=== PATIENT | female | born 1940 | race Caucasian/White ===

== ENCOUNTER 2017-08-21 06:03 | Inpatient (IN) | payer OTHER, BC ==
[2017-08-14 13:01] VITALS: BMI 33.2
[2017-08-21] MEDS ORDERED: CELECOXIB 200 MG CAPSULE PO ONE (06:24)
[2017-08-21] MEDS ORDERED: TRANEXAMIC ACID 1000 MG/10 ML VIAL IVPUSH ONE (06:24)
[2017-08-21] MEDS ORDERED: CEFAZOLIN 1 GM/D5W 1 GM/50 ML BAG IVPB ONE (06:24)
[2017-08-21] MEDS ORDERED: GABAPENTIN 300 MG CAPSULE (FP) PO ONE (06:24)
[2017-08-21] MEDS ORDERED: GABAPENTIN 300 MG CAPSULE (FP) ONE (06:40)
[2017-08-21] MEDS ORDERED: CELECOXIB 200 MG CAPSULE ONE (06:40)
[2017-08-21] MEDS ORDERED: BUPIVACAINE LIPOSOME/PF (EXPAREL) 266 MG/20 ML VIAL ONE (06:53)
[2017-08-21] MEDS ORDERED: MIDAZOLAM HCL 2 MG/2 ML SINGLE DOSE VIAL ONE (06:53)
[2017-08-21] MEDS ORDERED: BUPIVACAINE HCL/PF (5 MG/ML) 30 ML VIAL IJ ONE (06:53)
[2017-08-21] MEDS ORDERED: SODIUM CHLORIDE 0.9% P/F 10 ML VIAL IJ ONE (06:54)
[2017-08-21] MEDS ORDERED: BUPIVACAINE HCL/PF 2.5 MG/ML - 30 ML VIAL IJ ONE (06:54)
[2017-08-21] MEDS ORDERED: PROPOFOL 20 ML ONE (07:13)
[2017-08-21] MEDS ORDERED: SUCCINYLCHOLINE CHLORIDE 200 MG/10 ML VIAL ONE (07:13)
[2017-08-21] MEDS ORDERED: ceFAZolin SODIUM 1 GM VIAL ONE ×2 (07:14→07:18)
[2017-08-21] MEDS ORDERED: LIDOCAINE HCL/PF 2% SDV 5ML VIAL ONE (07:14)
[2017-08-21] MEDS ORDERED: VANCOMYCIN 1,000 MG VIAL (RESTRICTED TO ID ONLY) ONE (07:18)
--- NOTE | 2017-08-21 07:50 | HP ---
[facility] - Chief Complaint Chief Complaint: right knee pain - Past Medical History Allergies/Adverse Reactions: Allergies Allergy/AdvReac Type Severity Reaction Status Date / Time No Known Drug Allergies Allergy Verified 08/14/17 12:48 - Current Medications Current Medications: Home Medications Medication Instructions Recorded Aspirin [Ecotrin] 81 mg PO DAILY 08/14/17 Triamterene/Hydrochlorothiazid 1 each PO DAILY 08/14/17 [Dyazide 37.5-25 Capsule] Satellite Physical Exam - Physical Examination Vital Signs: Vital Signs Period Temp Pulse Resp BP Sys/Hoover Pulse Ox Last 24 Hr 98.2 F 80 18 147/90 General Appearance: Well Nourished, Well Developed, Alert & Oriented x3 ENT: Clear Lung: Normal air movement Heart: Regular rate & rhythm Extremities: Other (right knee- + swelling, + ttp, decr rom, nvi xrays show grade 4 tricompartmental djd) Neurological: Intact, Alert, Oriented Satellite Impression/Plan - Impression/Plan Impression: right knee djd Operative Procedure: right alexandra tkr Date to be Performed: 08/21/17
[2017-08-21] MEDS ORDERED: TRANEXAMIC ACID 1000 MG/10 ML VIAL ONE (08:40)
[2017-08-21] MEDS ORDERED: DEXAMETHASONE SOD PHOSPHATE 4 MG/1 ML VIAL ONE (08:49)
[2017-08-21] MEDS ORDERED: ONDANSETRON 4 MG/2 ML VIAL ONE (08:49)
[2017-08-21] MEDS ORDERED: VANCOMYCIN 1,000 MG VIAL (RESTRICTED TO ID ONLY) IVPB ONE (09:25)
[2017-08-21] MEDS ORDERED: MAGNESIUM HYDROX 2400MG/30ML ORAL SUSPENSION 30 ML CUP PO PRN (09:50)
[2017-08-21] MEDS ORDERED: ONDANSETRON 4 MG/2 ML VIAL IVPUSH PRN ×2 (09:50→10:35)
[2017-08-21] MEDS ORDERED: MAG HYDROX/AL HYDROX/SIMETH 30 ML UNIT-DOSE CUP PO PRN (09:50)
--- NOTE | 2017-08-21 09:52 | OP ---
Operative Note - Note: Operative Date: 08/21/17 (ric) Pre-Operative Diagnosis: right knee djd Operation: right alexandra tkr Post-Operative Diagnosis: Same as Pre-op Surgeon: Jose Alberto Barrera Blow Pit Operator: Ayo Molina Anesthesiologist/LINE ERECTOR APPRENTICE: Ting Hrebert Anesthesia: General, Spinal, Local Specimens Removed: bone fragments Estimated Blood Loss (mls): 100 Operative Report Dictated: Yes
[2017-08-21] MEDS ORDERED: LACTATED RINGERS SOLUTION 1,000 ML IV SCH (10:00)
[2017-08-21] MEDS ORDERED: oxyCODONE HCL 5 MG TABLET PO PRN (10:35)
[2017-08-21] MEDS ORDERED: PROMETHAZINE HCL 25 MG/1 ML VIAL IVPUSH PRN (10:35)
[2017-08-21] MEDS ORDERED: ACETAMINOPHEN 325 MG TABLET (FP) PO SCH (10:45)
--- NOTE | 2017-08-21 14:03 | SPEC ---
DATE OF OPERATION: 08/21/2017 PREOPERATIVE DIAGNOSIS: Degenerative joint disease, right knee. POSTOPERATIVE DIAGNOSIS: Degenerative joint disease, right knee. PROCEDURE: Right total knee replacement with robotic-assisted navigation (Makoplasty). SURGICAL ATTENDING: Jose Alberto Barrera M.D. LABORER WRECKING AND SALVAGING: Luis Mchugh ANESTHESIA: Regional and spinal. CLOSURE: A cemented Triathlon total knee system with a 4 femur, 5 tibia, 11 polyethylene, a 29 patella, number 1 Vicryl fascia, 0 and 2-0 subcutaneous, 3-0 Monocryl subcuticular with skin glue for skin, 4-0 undyed Vicryl for pin sites. ESTIMATED BLOOD LOSS: Less than 100 mL. COMPLICATIONS: None. CONDITION: To recovery room in stable condition. DESCRIPTION OF OPERATIVE PROCEDURE: Patient was taken to the operating room on August 21, 2017. Regional and spinal anesthesia was administered by the anesthesiologist. IV Kefzol and TXA were administered by the anesthesiologist. Well-padded pneumatic tourniquet was placed on the proximal thigh. The right lower extremity was prepped and draped in the usual sterile fashion. The leg was exsanguinated with an Esmarch bandage, and tourniquet was inflated to 275 mmHg. A 12 to 15-cm longitudinal midline incision was incised while centered over the patella. The dissection was carried down to the level of the extensor mechanism with sufficient flaps made to adequately perform the procedure. A medial parapatellar arthrotomy was then performed. We made a cuff of tissue on the patella for later closure. The patella was inverted, the knee was flexed up. The fat pad was excised. The subperiosteal dissection was on the anteromedial proximal tibia around towards the direction of the MCL. The ACL and the PCL were transected and debrided. The meniscal remnants of the medial and lateral meniscus were debrided and removed. This allowed the knee to be able to "be brought forward." The checkpoints were malleted into the tibia and into the femur. Two threaded pins were drilled anteroposteriorly proximal to the knee through the previous incision, through the anterior cortex, then just engaging the posterior cortex. To these pins was assembled the femoral navigation array. One handbreadth below the tibial tubercle, 2 stab incisions were used to drill 2 threaded pins in parallel fashion into the tibia, again through the anterior cortex and just engaging the posterior cortex. To these pins was fastened the tibial arrays. The knee was then registered with the navigation device with center of rotation of the hip, medial and lateral malleoli, both checkpoints, and multiple points on both the femur and the tibia to ensure excellent registration. The navigation device was directed off the "top of the bubbles" on both the femur and the tibia. The navigation passed within less than 0.5 mm to plan. The knee was then thoroughly inspected to remove all osteophytes both medially, laterally, and on the femur and the tibia, and whatever osteophytes were available for dissection. The knee was then taken to extension and to flexion, and stressed in both varus and valgus to assess flexion gaps. The virtual position of the components on the navigation device were then manipulated to optimize the position and to ensure equal gaps in both flexion and extension, and both medially and laterally. The robot was then brought into the field and was registered. The cuts were then made both on the femur and on the tibia as to plan. All osteophytes posteriorly were then removed as well. The gaps were then measured again in flexion and extension to be equal in both flexion and extension and medial and laterally. The femoral notch was then made, as we were doing a posterior stabilizing component, with the appropriate sized box. Trial reduction of the femur achieved excellent hscs-pt-bnex fit. A tibial baseplate of appropriate polyethylene thickness was "floated in the knee." It was ensured to be in the excellent position by navigation devices and was pinned in place. The knee was taken through a range of motion, and found to have excellent stability throughout flexion and extension. The patella was calibrated for thickness and osteotomized down to the appropriate level. The appropriate lollipop was used to drill the lug holes in the patella and the trial button was applied. The knee was taken through a range of motion and found to have excellent tracking of the patella, and patella from full extension to full flexion. Trial components were removed, the keel was punched and drilled, and a sclerotic bone on the tibia was drilled to help with cement interdigitation. The knee was thoroughly irrigated with the pulse antibiotic school community relations coordinator. The real components were then cemented in using monitored arrangement cement techniques with antibiotic cement, and pressurization and extension. After the cement was hardened, the knee was thoroughly inspected to remove any extra cement. The real polyethylene component was then clipped into place. Range of motion, stability, and tracking were as described earlier. The checkpoints and the pins were removed. The knee was thoroughly irrigated with antibiotic irrigation. Vancomycin powder was placed into the knee for antibiotic prophylaxis. The medial parapatellar arthrotomy was then closed using number 1 Vicryl interrupted suture. After closure of the deep layer, the knee was taken through a range of motion, and found to have excellent stability of the patella with no dislocation and no undue tension on the repair. The subcutaneous was pulse antibiotic irrigated, and was then closed with 2-0 Vicryl, 3-0 Monocryl subcuticular with the skin glue for the skin. The distal tibial pin site was irrigated thoroughly as well and then closed with 4-0 undyed Vicryl. A sterile Aquacel dressing was applied, followed by a Nicole dressing. Tourniquet was deflated. Total tourniquet time was approximately 75 minutes. No complications. Patient was awakened from anesthesia and transferred to recovery room in stable condition. Postoperative x-rays revealed excellent position of the components. David [id number]
[2017-08-21] MEDS: oxyCODONE HCL 5 MG TABLET PO PRN ×2 (15:13→18:50)
[2017-08-21] MEDS: CEFAZOLIN 1 GM/D5W 1 GM/50 ML BAG IVPB SCH (15:28)
[2017-08-21] MEDS: oxyCODONE HCL 10 MG SUSTAINED ACTING TABLET PO SCH (21:20)
[2017-08-21] MEDS: SENNOSIDES/DOCUSATE COMBO (SENNA PLUS) TABLET (UD) PO SCH (21:20)
[2017-08-22] MEDS: CEFAZOLIN 1 GM/D5W 1 GM/50 ML BAG IVPB SCH
[2017-08-22] MEDS: ACETAMINOPHEN 325 MG TABLET (FP) PO SCH ×4 (05:00→18:29)
[2017-08-22] MEDS: oxyCODONE HCL 5 MG TABLET PO PRN ×3 (05:55→08:33)
[2017-08-22] MEDS: MULTIVITAMINS (DAILY MVI) TABLET (FP) PO SCH (08:05)
[2017-08-22] MEDS: ASPIRIN 325 MG TABLET PO SCH (08:33)
--- NOTE | 2017-08-22 09:33 | PN ---
Progress Note (short form) - Note Progress Note: Ortho Pt seen and examined s/p right alexandra tkr pod #1 Selected Entries 08/22/17 06:24 Temperature 97.5 F L Pulse Rate 81 Respiratory 18 Rate Blood Pressure 95/46 dressing c/d/i, calf soft ,nt rom 0-40, nvi cbc pending a/p PT dvt ppx pain control d/c home tomorrow if stable
[2017-08-22] MEDS: oxyCODONE HCL 10 MG SUSTAINED ACTING TABLET PO SCH (10:05)
[2017-08-22] MEDS: SENNOSIDES/DOCUSATE COMBO (SENNA PLUS) TABLET (UD) PO SCH ×2 (10:05→21:26)
[2017-08-22] MEDS: TRIAMTERENE AND HCTZ - 37.5 MG/25 MG CAPSULE PO SCH (10:05)
[2017-08-22] MEDS: PANTOPRAZOLE 40 MG TABLET (FP) PO SCH (10:10)
--- NOTE | 2017-08-22 10:37 | PN ---
Progress Note (short form) - Note Progress Note: 77F POD1 s/p R TKR under spinal anesthetic and peripheral nerve blocks. Pt states that she has moderate amount of pain, and is refusing to take oxycodone due to nausea. Pt does not report any anesthetic complications. AVSS. Motor and sensory function intact in bilateral lower extremities. Will add tramadol prn and d/c oxycodone 10 prn.
[2017-08-22] MEDS: traMADol HCL 50 MG TABLET PO PRN (21:25)
[2017-08-23] MEDS: ACETAMINOPHEN 325 MG TABLET (FP) PO SCH ×2 (00:40→05:54)
[2017-08-23] MEDS: traMADol HCL 50 MG TABLET PO PRN ×2 (05:54→10:53)
[2017-08-23 06:25] VITALS: BP 127/57; PULSE 98; TEMP 98.7
[2017-08-23 07:42] LABS: HEMATOCRIT 37.3 % (32.4-45.2); HEMOGLOBIN 12.7 GM/dl (10.7-15.3); MCH 31.1 pg (25.7-33.7); MCHC 34.1 g/dl (32.0-36.0); MEAN CELL VOLUME 91.4 fl (80-96); MEAN PLT VOLUME 9.3 fl (7.5-11.1); PLATELET COUNT 171 K/MM3 (134-434); RBC 4.09 M/mm3 (3.60-5.2); RDW 13.3 % (11.6-15.6); WHITE BLOOD COUNT 9.9 K/mm3 (4.0-10.8)
[2017-08-23] MEDS: ASPIRIN 325 MG TABLET PO SCH (07:52)
--- NOTE | 2017-08-23 08:29 | PN ---
Progress Note (short form) - Note Progress Note: Ortho Pt seen and examined s/p right alexandra tkr pod #2 Selected Entries 08/23/17 06:00 Temperature 98.7 F Pulse Rate 98 H Respiratory 20 Rate Blood Pressure 127/57 Laboratory Tests 08/23/17 07:00 WBC 9.9 Hgb 12.7 Hct 37.3 Plt Count 171 dressing c/d/i, calf soft ,nt rom 0-40, nvi a/p PT dvt ppx pain control d/c home today f/u in 1 week
--- NOTE | 2017-08-23 08:30 | DS ---
Physical Examination Vital Signs: Vital Signs Temperature 98.7 F 08/23/17 06:00 Pulse Rate 98 H 08/23/17 06:00 Respiratory Rate 20 08/23/17 06:00 Blood Pressure 127/57 08/23/17 06:00 O2 Sat by Pulse Oximetry (%) 94 L 08/23/17 06:00 Labs: CBC, BMP 08/23/17 07:00 Discharge Summary Reason For Visit: OSTEOARTHRITIS Procedures: Principal: s/p right alexandra tkr Hospital Course: admitted for elective right alexandra tkr, uneventful post-op, stable for d/c Condition: Good - Instructions Diet, Activity, Other Instructions: Post-op Instructions-Total Knee Replacement Call the office for a follow-up appointment in 1 week - [phone] Aspirin 325mg daily for 6 weeks. Pain medication was sent into your pharmacy. Apply Graduated Compression Stockings (TEDs) to both lower extremities- remove daily for hygiene ONLY Apply Sequential Compression Device (SCDs) to both Lower extremities remove for PT and hygiene ONLY Apply cold packs to affected area for 15 minutes every 2 hours. Physical Therapist will come to your home for the first 5 days. You will be set up with outpatient PT at your first post-operative visit. Patient may ambulate as tolerated-encourage self care (at least every 2-3 hours while awake) with walker or cane Maintain Aquacel (waterproof) dressing to operative wound (will be removed by surgeon at first office visit) Shower with Aquacel dressing in place-if Aquacel integrity compromised, remove and apply dry sterile dressing and notify Orthopedist. DO NOT SHOWER unless Orthopedists approves without Aquacel dressing CONTACT THE OFFICE FOR ANY CHANGE IN YOUR CONDITION (for example-fever greater than 102 degrees, excessive bleeding from operative site, purulent drainage, severe swelling or pain) GO TO THE EMERGENCY ROOM IF THERE IS A MEDICAL EMERGENCY Knee Precautions: * Keep a rolled towel under affected heel while in bed or chair (to keep knee in extension) * Keep affected leg elevated except during mealtimes * DO NOT PLACE PILLOW UNDER AFFECTED KNEE * If you have any questions, please do not hesitate to call the office - . Referrals: Jose Alberto Barrera MD [Staff Physician] - Disposition: VNS/HOME HEALTH CARE - Home Medications Comprehensive Discharge Medication List: Ambulatory Orders Triamterene/Hydrochlorothiazid [Dyazide 37.5-25 Capsule] 1 each PO DAILY Aspirin [ASA -] 325 mg PO DAILY@0800 tablet 08/21/17 Oxycodone HCl/Acetaminophen [Percocet 5-325 mg Tablet -] 1 - 2 tab PO Q6H #50 tab MDD 8 08/21/17
[2017-08-23] MEDS ORDERED: PT OWN MED DRAWER 7, Y5N ONE (09:39)
[2017-08-23] MEDS: TRIAMTERENE AND HCTZ - 37.5 MG/25 MG CAPSULE PO SCH ×2 (10:52→10:53)
[2017-08-23] MEDS: PANTOPRAZOLE 40 MG TABLET (FP) PO SCH (10:53)
[2017-08-23] MEDS: SENNOSIDES/DOCUSATE COMBO (SENNA PLUS) TABLET (UD) PO SCH ×2 (10:53→10:54)
[2017-08-23] MEDS: MULTIVITAMINS (DAILY MVI) TABLET (FP) PO SCH (10:53)
--- NOTE | 2017-08-24 17:06 | PATH ---
Surgical Pathology Report Patient Name: TIKA JULIEN Med. Rec. #: [id number] /Age/Gender: 1940 (Age: 77) / F Account: [id number] Location: [facility] MED-SURG Taken: 08/21/2017 Received: 08/21/2017 Reported: 08/24/2017 Physicians: Jose Alberto Barrera M.D. Specimen(s) Received RIGHT KNEE BONE Clinical History Right knee osteoarthritis Final Diagnosis BONE, KNEE, RIGHT, TOTAL KNEE REPLACEMENT MAKOPLASTY: BONE WITH DEGENERATIVE JOINT DISEASE, DENSE FIBROCONNECTIVE TISSUE, FIBROADIPOSE TISSUE, AND REACTIVE SYNOVIUM. Electronically Signed Mini Mosqueda M.D. Gross Description Received in formalin labeled "right knee bones" is a 10 x 11 x 2 cm aggregate of multiple portions of bone and soft tissue. The tibial plateau measures 8 x 5 x 0.5 cm. There are focal areas of eburnation identified. The articular surface is arroyo-yellow and diffusely granular. The underlying trabecular bone is yellow and hard. Teachers Aide sections submitted in one cassette, following decalcification. JH/08/22/2017 aubrey/08/22/2017
== END 2017-08-23 12:32 | disposition home health service (06) | DRG 470 ==
LOC: FM/S 06:03
PROVIDERS: ADMIT Orthopaedic Surgery; ATTEND Orthopaedic Surgery
PROC: 8E0Y0CZ Robotic Assisted Procedure of Lower Extremity, Open Approach (ICD-10-PCS; 2017-08-21)
PROC: 0SRC0J9 Replacement of Right Knee Joint with Synthetic Substitute, Cemented, Open Approach (ICD-10-PCS; principal; 2017-08-21 08:00)
DX: M17.11 Unilateral primary osteoarthritis, right knee (principal)
CPT/HCPCS: 36415; 73560-TC-RT-FY; 85027; 88304-TC; 88311-TC; 94760; 97116-GP; 97162-GP